=== PATIENT | female | born 1945 | race Caucasian/White ===

== ENCOUNTER → 2016-08-26 | Outpatient (CLI) | payer MEDICARE, OTHER ==
[~2016-08-26] MED LIST: ATENOLOL PO; ATIVAN PO; DICLOFENAC PO; LIPITOR PO; PROZAC PO
--- NOTE | ~2016-08-26 | MY26 ---
[facility] A Service of [facility] RADIOLOGY TEXT RESULTS PATIENT: WHITNEY BENTLEY LOCATION: [facility] : 43 UNIT #: [id number] AGE: [address]: Derrick Rodriguez MD SEX: F ORDER DR: [id number] [facility] [address] [place], [place] [address] [id number] O MR#: [id number] Acc #: [id number] NAME: WHITNEY BENTLEY. : 1945 SEX: F STUDY DATE/TIME: 08/26/2016 14:00 UNIT: [facility] ROOM: STUDY DESCRIPTION: [facility] DIAGNOSTIC W/ CAD BILAT Attending Physician: Derrick Rodriguez M.D. Referring Physician: Derrick Rodriguez M.D. Ordering Physician: Derrick Rodriguez M.D. Primary Care Physician: Rocky Llamas M.D. MEDICAL IMAGING REPORT This report is preliminary unless electronic signature is present EXAM Diagnostic mammogram 08/26 INDICATIONS History of left breast cancer status post lumpectomy and radiation therapy. No current complaints. TECHNIQUE Digital CC, MLO, and ML views of both breasts were obtained. Study is reviewed with an FDA-approved CAD device. COMPARISON 10/11/2015 and 02/05/2014 FINDINGS The lumpectomy bed on the left, is unremarkable in appearance. Patient also had lymph nodes removed in the deep upper outer quadrant. This is also otherwise unremarkable. Breast parenchyma demonstrates scattered fibroglandular densities. No new masses or suspicious microcalcifications are seen on either side. Mild benign nodularity in the right breast is stable. Findings were discussed with the patient at the time of her examination today. IMPRESSION Benign bilateral mammogram with post surgical and post therapy changes in the left breast. Followup in 1 year is recommended. Patient's over the age of 40 are entered into a reminder system with target due date for the next mammogram. A result letter will be sent to the patient. BIRADS: 2 Benign findings. [facility] A Service of [facility] RADIOLOGY TEXT RESULTS PATIENT: WHITNEY BENTLEY LOCATION: [facility] : 43 UNIT #: [id number] AGE: [address]: Derrick Rodriguez MD SEX: F ORDER DR: Dictated by... Bull Perez Jr., M.D. THIS IS AN ELECTRONICALLY VERIFIED REPORT Bull Perez Jr., M.D. at 08/27/2016 7:10 AM RLK/to TD: 08/26/2016 18:39 JOB #: [id number] CC: Ernst Mcnamara M.D. MEDICAL IMAGING REPORT Page 1 of 1 COPY
== END | disposition home or self-care (01) ==
LOC: CMAM 13:30
DX: C50.912 Malignant neoplasm of unspecified site of left female breast (principal)
CPT/HCPCS: G0204